=== PATIENT | female | born 1960 | race African-American/Black ===

== ENCOUNTER 2021-07-28 21:46 | Emergency (ER) | payer MEDICAID, SELFPAY ==
[2021-07-28] VITALS (7 sets, daily range): BP systolic 126–136; BP diastolic 94–101; PULSE 130–149; RESP 35–46; TEMP 37.3–38.8; O2SAT 92–96
--- NOTE | ~2021-07-28 | CT_ITS ---
EXAMINATION: CTA chest PE protocol DATE: 07/28/2021 23:07 INDICATION: Shortness of breath. COVID. TECHNIQUE: Computed tomography (CT) pulmonary angiogram of the chest was performed with 100 mL Omnipa que-350 intravenous contrast. Additional 3D reconstructions utilizing coronal maximum intensity proje ction (MIP) were performed. Automated exposure control and iterative reconstruction technique were em ployed. The dose-length product was 187.65 mGy-cm. COMPARISON: None FINDINGS: Excellent contrast opacification of the pulmonary arteries. There is mild streak artifact from dense contrast in the superior vena cava and right atrium. Mild scattered respiratory motion artifact. Ther e are scattered pulmonary emboli including in the right mainstem bronchus subtle over the bifurcation between the right upper lobar and right lower lobar pulmonary arteries with extension into the major ity of the segmental pulmonary arteries of the right upper and lower lobes. Additional smaller pulmon perri embolism is seen in the anterior and apical segmental pulmonary arteries of the left upper lobe a nd in the subsegmental pulmonary artery of the medial segment of the right middle lobe. There are pat alvaro peripheral predominant airspace opacities, some more dense and bandlike and others more groundgla ss and wedge-shaped which could represent COVID pneumonia, pulmonary infarcts or combination thereof. No pulmonary edema, pleural effusion or pneumothorax. Borderline heart size with right ventricular e nlargement and leftward bowing of the ventricular septum suggesting right heart strain. No pericardia l effusion. Ectatic ascending thoracic aorta measuring up to 4.0 x 3.9 cm. No dissection. No patholog ically enlarged thoracic lymphadenopathy. Visualized upper abdomen is unremarkable. Moderate thoracic spondylosis. IMPRESSION: 1. Right-sided predominant bilateral pulmonary emboli with moderate clot burden but with suggestion o f right heart strain. 2. Bilateral peripheral and lower lung predominant airspace disease which could represent COVID pneum onia, pulmonary infarcts or combination thereof. Reviewed, dictated and finalized at location A. IMPRESSION: 1. Right-sided predominant bilateral pulmonary emboli with moderate clot burden but with suggestion of right heart strain. 2. Bilateral peripheral and lower lung predominant airspace disease which could represent COVID pneumonia, pulmonary infarcts or combination thereof.
--- NOTE | ~2021-07-28 | XR_ITS ---
EXAMINATION: XR chest 1V portable EXAM DATE: 07/28/2021 22:04 INDICATION: SOB, COVID+ X 14 Days Ago TECHNIQUE: Portable AP frontal chest x-ray was obtained. There is no prior study for comparison. FINDINGS: There is moderate amount of bilateral airspace disease with both linear and more confluent components, combination of pneumonia and atelectasis. Appearance is consistent with subacute COVID pn eumonia. No pneumothorax or pleural effusion. The cardiomediastinal silhouette is prominent but magni fied on this AP technique. There are no osseous abnormalities identified. IMPRESSION: Moderate amount of bilateral pneumonia and atelectasis. Reviewed, dictated and finalized at location A.
--- NOTE | 2021-07-28 21:53 | ECG_ITS ---
Measurements Intervals [place] Rate: 145 P: 27 MT: 123 QRS: -6 QRSD: 71 T: 17 QT: 323 QTc: 503 Interpretive Statements SINUS TACHYCARDIA EARLY PRECORDIAL R/S TRANSITION LEFT VENTRICULAR HYPERTROPHY AND ST-T CHANGE BORDERLINE ST-T WAVE ABNORMALITY- DIFFUSE LEADS BASELINE ARTIFACT- I, II, III, AVR, AVF, V1-V6 ABNORMAL ECG Electronically Signed On 07-29-2021 8:08:49 CDT by Stan Martin D.O.
[2021-07-28 22:16] LABS: Basophils Percent Auto 0.4 % (0.2-1.2); Eosinophils Absolute Auto 0.1 K/mm3 (0-0.3); Eosinophils Percent Auto 1.2 % (0-4.4); Hematocrit 43.1 % (37.0-47.0); Hemoglobin 14.5 g/dL (12.0-15.0); Immature Granulocyte Absolute 0.17 K/mm3 (0.00-0.031); Immature Granulocyte Percent A 2.4 % (0-0.5); Lymphocytes Percent Auto 16.6 % (18.3-44.2); Mean Corpuscular HGB Conc 33.6 g/dl (32-36); Mean Corpuscular Hemoglobin 29.5 pg (26-34); Mean Corpuscular Volume 87.8 fl (80-100); Monocytes Absolute Auto 0.9 K/mm3 (0.1-0.6); Monocytes Percent Auto 12.5 % (2.6-8.5); Neutrophils Absolute Auto 4.8 K/mm3 (1.3-6.7); Neutrophils Percent Auto 66.9 % (45.5-73.1); Platelet Count Result 335 k/mm3 (150-375); Red Blood Count 4.91 M/mm3 (4.2-5.4); Red Cell Distribution Width 13.5 % (11.5-14.5); White Blood Count 7.2 K/mm3 (4.5-10.0)
[2021-07-28] MEDS: ALBUTEROL SULFATE (*SP) INHALER 2 PUFF INHALATION (22:22)
[2021-07-28 22:27] LABS: INR 1.2; Prothrombin Time 14.7 Seconds (11.1-14.7)
[2021-07-28 22:28] LABS: Partial Thromboplastin Time 28.6 SECONDS (22.3-36.8)
[2021-07-28 22:35] LABS: Alanine Aminotransferase 108 U/L (4-35); Albumin Level 3.7 g/dL (3.5-5.1); Alkaline Phosphatase 58 U/L (38-126); Anion Gap 9 mmol/L (8-16); Aspartate Amino Transferase 124 U/L (14-36); Blood Urea Nitrogen 17 mg/dL (7-17); Calcium 8.9 mg/dL (8.4-10.2); Carbon Dioxide 25 mmol/L (22-30); Chloride 108 mmol/L (98-107); Estimated CRCL calculation 78 ml/min; Estimated Glomerular Filt Rate > 60; Glucose 118 mg/dL (65-110); Potassium 3.1 mmol/L (3.4-5.0); Sodium 142 mmol/L (137-145)
[2021-07-28 22:39] LABS: Alveolar/Arterial O2 Gradient 225.9 mmHg; Fractional Inspired Oxygen 44 %; HCO3 ABG 22.6 mEq/l (22.0-26.0); Oxygen Content ABG 18.5 %vol (16.0-22.0); Oxygen Saturation ABG 92.2 % (95.0-100.0); Oxyhemoglobin 88.5 % THb (90.0-100.0); PCO2 ABG 28.4 mmHg (35.0-45.0); PO2 ABG 55.4 mmHg (80.0-100.0); PO2 FiO2 Ratio Arterial Blood 1.26 %; Total Hemoglobin 14.9 g/dL (12.0-18.0)
--- NOTE | 2021-07-28 22:40 | ED.GENADULT ---
HPI - General Adult General Chief complaint: Shortness of Breath/Dyspnea Stated complaint: sob Time Seen by Provider: 07/28/21 22:03 History of Present Illness HPI narrative: Patient 60-year-old female presents the emergency department with chief complaint of Covid pneumonia. The patient reports that she was diagnosed on the with Covid and was seen at a hospital in [place]. At that time the patient was not hypoxic and the discharge the patient home. Patient has been resting comfortably at home but has been using a home pulse oximeter and her pulse ox with drops down into the upper 80s the family today noticed that she was more short of breath and her pulse ox dropped down into the 60s. The patient is not on home oxygen was not treated with monoclonal antibodies and has not received the vaccine prior to becoming infected. Review of Systems Review of Systems: A 10 system review of systems was completed on the patient and is negative except for what is stated in the HPI. Nursing and ancillary documentation was reviewed. Exam Narrative: GENERAL: Well-appearing, well-nourished, and in no acute distress. HEAD: Normocephalic, atraumatic. EYES: PERRLA and EOMI. ENT: Nares clear, no rhinorrhea or epistaxis. Mucous membranes moist. NECK: Supple. CHEST: Clear to auscultation. Mild respiratory distress. HEART: Regular rate and rhythm. No murmur heard. Normal peripheral pulses. ABDOMEN: Soft, nontender, nondistended, normal active bowel sounds. EXTREMITIES: Normal range of motion. No edema. SKIN: Warm, dry, no rash. NEURO: No focal deficits. Alert and oriented x3. PSYCH: Normal mood and affect. Course Course Emergency Course: CT scan showed evidence of massive pulmonary emboli. Also showed evidence of right heart strain. The case was discussed with our local hospitalist who recommended transfer to a facility that has potential for thrombectomy or TPA for pulmonary embolism. The [facility] system was contacted the [facility] in the emergency systems were all contacted currently they have no available beds and recommended trying other facilities Vital Signs Vital signs: Vital Signs Temperature 38.8 C H 07/28/21 21:45 Pulse Rate 149 H 07/28/21 21:45 Respiratory Rate 40 H 07/28/21 21:45 Blood Pressure 136/101 H 07/28/21 21:45 Pulse Oximetry 92 07/28/21 21:45 Temperature 37.3 C 07/28/21 23:51 Pulse Rate 130 H 07/28/21 23:51 Respiratory Rate 46 H 07/28/21 23:51 Blood Pressure 126/94 H 07/28/21 23:51 Pulse Oximetry 96 07/28/21 23:51 Transfer Transfered to: Other ([facility]) Medical Decision Making Vital Signs Vital Signs: Vital Signs Temperature 38.8 C H 07/28/21 21:45 Pulse Rate 149 H 07/28/21 21:45 Respiratory Rate 40 H 07/28/21 21:45 Blood Pressure 136/101 H 07/28/21 21:45 Pulse Oximetry 92 07/28/21 21:45 Temperature 37.3 C 07/28/21 23:51 Pulse Rate 130 H 07/28/21 23:51 Respiratory Rate 46 H 07/28/21 23:51 Blood Pressure 126/94 H 07/28/21 23:51 Pulse Oximetry 96 07/28/21 23:51 Lab Data Result diagrams: 07/28/21 22:05 07/28/21 22:05 Labs: Lab Results 07/28/21 07/28/21 07/28/21 Range/Units 22:05 22:05 22:05 WBC 7.2 (4.5-10.0) K/mm3 RBC 4.91 (4.2-5.4) M/mm3 Hgb 14.5 (12.0-15.0) g/dL Hct 43.1 (37.0-47.0) % MCV 87.8 (80-100) fl MCH 29.5 (26-34) pg MCHC 33.6 (32-36) g/dl RDW 13.5 (11.5-14.5) % Plt Count 335 (150-375) k/mm3 MPV 10.0 (7.4-10.4) fl Immature Gran % (Auto) 2.4 H (0-0.5) % Neut % (Auto) 66.9 (45.5-73.1) % Lymph % (Auto) 16.6 L (18.3-44.2) % [place] % (Auto) 12.5 H (2.6-8.5) % Eos % (Auto) 1.2 (0-4.4) % Baso % (Auto) 0.4 (0.2-1.2) % Lymph # (Auto) 1.20 (0.9-3.2) K/mm3 [place] # (Auto) 0.9 H (0.1-0.6) K/mm3 Eos # (Auto) 0.1 (0-0.3) K/mm3 Baso # (Auto) 0.0 (0.0-0.1) K/mm3 Abs Immat Gran (auto) 0.17 H (0.00-0.031) K/mm3 Absolute Neuts
[2021-07-28 22:41] LABS: Device NASAL CANNULA; Modified Allen's Test Pass; Site Drawn RIGHT RADIAL; pH ABG 7.519 (7.350-7.450)
[2021-07-28] MEDS: DEXAMETHASONE SOD PHOS INJ 4 MG/ML VIAL 6 MG IV PUSH (22:44)
[2021-07-28] MEDS: SODIUM CHLORIDE 0.9% IV 1,000 ML 999 ML IV CONT (22:48)
[2021-07-28 23:05] LABS: NT Pro B Type Natriuretic Pept 215 pg/mL (5-100)
[2021-07-28 23:36] LABS: Lactic Acid Reflex 1.1 mmol/L (0.7-2.1)
[2021-07-28 23:47] LABS: Add Urine Microscopic? YES; Appearance Urine Clear (Clear); Bacteria Urine Trace /hpf; Bilirubin Urine Negative (Negative); Blood Urine Negative (Negative); Color Urine Straw (Yellow); Glucose Urine UA Negative (Negative); Ketones Urine Trace mg/dL (Negative); Leukocyte Esterase Ur Negative LEU/UL (Negative); Mucus Urine Rare /lpf; Nitrate Urine Negative (Negative); Protein Urine Negative (Negative); RBC Urine 0-2 /hpf (0-2); Specific Grav Ur 1.021 (1.001-1.035); Squamous Epithelial Cell Urine Many /hpf (Few); WBC Urine 0-3 /hpf
[2021-07-28] MEDS: ASPIRIN 81 MG CHEWABLE TABLET 324 MG PO (23:50)
[2021-07-29 00:16] VITALS: BP 138/97; PULSE 126; RESP 30; O2SAT 95
[2021-07-29 00:31] VITALS: BP 151/101; PULSE 124; RESP 36; O2SAT 93
[2021-07-29 00:46] VITALS: BP 132/100; PULSE 124; RESP 33; O2SAT 95
[2021-07-29 01:01] VITALS: BP 127/99; PULSE 123; RESP 39; O2SAT 96
[2021-07-29 01:31] LABS: Basophils Percent Auto 0.3 % (0.2-1.2); Eosinophils Percent Auto 0.2 % (0-4.4); Hematocrit 40.7 % (37.0-47.0); Hemoglobin 13.6 g/dL (12.0-15.0); Immature Granulocyte Absolute 0.15 K/mm3 (0.00-0.031); Immature Granulocyte Percent A 1.6 % (0-0.5); Lymphocytes Absolute Auto 0.76 K/mm3 (0.9-3.2); Mean Corpuscular HGB Conc 33.4 g/dl (32-36); Mean Corpuscular Hemoglobin 29.4 pg (26-34); Mean Corpuscular Volume 88.1 fl (80-100); Mean Platelet Volume 9.8 fl (7.4-10.4); Monocytes Absolute Auto 0.6 K/mm3 (0.1-0.6); Monocytes Percent Auto 6.4 % (2.6-8.5); Neutrophils Absolute Auto 7.9 K/mm3 (1.3-6.7); Neutrophils Percent Auto 83.5 % (45.5-73.1); Platelet Count Result 287 k/mm3 (150-375); Red Blood Count 4.62 M/mm3 (4.2-5.4); Red Cell Distribution Width 13.5 % (11.5-14.5); White Blood Count 9.5 K/mm3 (4.5-10.0)
[2021-07-29] MEDS: HEPARIN SODIUM 5,000 UNITS/ML VIAL 5000 UNITS IV PUSH (01:33)
[2021-07-29] MEDS: HEPARIN SOD/D5W 100 UNITS/ML 25,000 UNITS/250 ML BAG 11 UNITS IV CONT (01:35)
[2021-07-29 01:43] LABS: INR 1.3; Prothrombin Time 15.5 Seconds (11.1-14.7)
[2021-07-29] MEDS: SODIUM CHLORIDE 0.9% IV 1,000 ML 999 ML IV CONT (02:30)
--- NOTE | 2021-07-29 02:31 | PC.NURSE ---
0056- [facility]- no ICU beds, they will check [facility] for beds. 0102- [facility], no COVID beds or wait list. 0111- [facility] NO ICU beds 0134- Dr. Srivastava at [facility], accepted pt to ICU. 0141- Per Heather/admitting at [facility]- pt will go rm [phone], call [phone] to give report. 0212- face sheet faxed to admitting at [facility] .
[2021-07-29 02:35] VITALS: BP 122/97; PULSE 112; RESP 33; O2SAT 98
[2021-07-29 02:36] VITALS: PULSE 112; RESP 33; O2SAT 99
--- NOTE | 2021-07-29 03:39 | PC.NURSE ---
This PT was transfered with IV heparin running so her IV fluid stop time was not documented by this RN.
== END 2021-07-29 03:39 | disposition short-term general hospital (02) ==
PROVIDERS: Emergency Provider Emergency Medicine
DX: U07.1 COVID-19 (principal); J12.82 Pneumonia due to coronavirus disease 2019; I26.99 Other pulmonary embolism without acute cor pulmonale; R09.02 Hypoxemia; R00.0 Tachycardia, unspecified; I51.7 Cardiomegaly; R94.31 Abnormal electrocardiogram [ECG] [EKG]
CPT/HCPCS: 36415; 36600; 71045; 71275; 80053; 81001; 82805; 83605; 83735; 83880; 84484; 85025; 85610; 85730; 87040; 93005; 96361; 96365; 96366; 96375; 99291; A9270; J0131; J1100; J1644; J7030; Q9967